=== PATIENT | female | born 1970 ===

== ENCOUNTER 2016-11-22 08:27 | Day surgery (SDC) | payer OTHER ==
[2016-11-22] MEDS ORDERED: Propofol 10 mg/ml Inj (20 ML) ONE ×2 (12:10→12:11)
[2016-11-22 12:57] VITALS: TEMP 98.2
[2016-11-22 13:48] VITALS: O2SAT 100
[2016-11-22 13:50] VITALS: BP 116/69; PULSE 89; RESP 15
== END 2016-11-22 14:35 | disposition home or self-care (01) ==
LOC: C.ENDO 08:27
PROVIDERS: ATTEND Internal Medicine Gastroenterology
DX: R19.2 Visible peristalsis (principal); R10.9 Unspecified abdominal pain; R79.89 Other specified abnormal findings of blood chemistry; K64.8 Other hemorrhoids; K29.70 Gastritis, unspecified, without bleeding
CPT/HCPCS: 43239; 45378; 84703; 88305; 88313; 88342; J2704

== ENCOUNTER 2017-10-10 09:59 | Emergency (ER) | payer OTHER ==
[2017-10-10 10:13] VITALS: BMI 31.4
[2017-10-10 10:18] VITALS: TEMP 98.5
--- NOTE | 2017-10-10 10:45 | C.PDOC ---
History Of Present Illness 47 year old female presents to the ED c/o new onset right inner groin pain for the past 4 days. Patient states her pain is localized, worsens with weight bearing. Patient has prior history of similar symptoms. Patient denies injury, fall, trauma, weakness, numbness, back pain, dysuria, hematuria. Time Seen by Provider: 10/10/17 10:40 Chief Complaint (Nursing): Lower Extremity Problem/Injury History Per: Patient History/Exam Limitations: no limitations Onset/Duration Of Symptoms: Days (4) Current Symptoms Are (Timing): Still Present Recent travel outside of the [place]: No Additional History Per: Patient - Hip Description Of Injury: Other Currently Unable To: Bear Weight Past Medical History Reviewed: Historical Data, Nursing Documentation, Vital Signs Vital Signs: Last Vital Signs Temp 98.5 F 10/10/17 10:13 Pulse 84 10/10/17 10:13 Resp 18 10/10/17 10:13 BP 110/75 10/10/17 10:13 Pulse Ox 96 10/10/17 11:40 - Medical History PMH: No Chronic Diseases Denies: Chronic Kidney Disease Surgical History: Endoscopy Family History: States: Unknown Family Hx - Social History Hx Alcohol Use: No Hx Substance Use: No - Immunization History Hx Tetanus Toxoid Vaccination: No Hx Influenza Vaccination: No Hx Pneumococcal Vaccination: No Review Of Systems Constitutional: Negative for: Fever, Chills Cardiovascular: Negative for: Chest Pain Respiratory: Negative for: Cough, Shortness of Breath Gastrointestinal: Negative for: Nausea, Vomiting, Abdominal Pain Musculoskeletal: Positive for: Leg Pain Skin: Negative for: Rash Neurological: Negative for: Weakness, Numbness Physical Exam - Physical Exam Appears: Non-toxic, No Acute Distress Skin: Normal Color, Warm, Dry Head: Atraumatic, Normacephalic Eye(s): bilateral: Normal Inspection Neck: Normal ROM, Supple Chest: Symmetrical Cardiovascular: Rhythm Regular Respiratory: Normal Breath Sounds, No Rales, No Rhonchi, No Wheezing Extremity: Normal ROM, No Tenderness (no focal tenderness), Capillary Refill (< 2 seconds), No Swelling, Other (reproducible pain on passive ROM motion on full external rptation and on full extension of right leg) Pulses: Left Dorsalis Pedis: Normal, Right Dorsalis Pedis: Normal Neurological/Psych: Oriented x3, Normal Speech, Normal Motor, Normal Sensation Gait: Other (Limited full weight bearin on right leg due to pain) ED Course And Treatment O2 Sat by Pulse Oximetry: 96 (ON RA) Pulse Ox Interpretation: Normal - Other Rad PELVIS X-Ray: Interpreted by Me (NEG) - CT Scan/US DOPPLER Other Rad Studies (CT/US): Radiology Report Reviewed (NEG) Medical Decision Making Medical Decision Making: Plan: * Flexeril 10 mg PO * Toradol 60 mg IM * Pelvis X-Ray * Venous Duplex Scan Disposition Counseled Patient/Family Regarding: Studies Performed, Diagnosis, Need For Followup, Rx Given - Disposition Referrals: YOUR,PMD [Other] Disposition: HOME/ ROUTINE Disposition Time: 12:42 Condition: IMPROVED Additional Instructions: YOUR LEG DOPPLER ULTRASOUND IS NEGATIVE. FOLLOW UP PMD APPLY PATCH TO AFFECTED AREA. MAX 3 PATCHES AT A TIME. REMOVE PATCH 12 HOURS AFTER INITIAL APPLICATION. ALTERNATE 12 HOURS ON, 12 HOURS OFF. Prescriptions: Cyclobenzaprine [Flexeril] 10 mg PO TID #15 tab Ibuprofen [Motrin] 600 mg PO Q6 #30 tab Lidocaine 5% [Lidoderm] 2 patch TOP ONCE PRN #20 patch MDD 3 PATCHES PRN Reason: Pain, Moderate (4-7) Instructions: Groin Strain (DC) Forms: [employer] (Montenegrin) - Clinical Impression Clinical Impression: Groin pain - Scribe Statement The provider has reviewed the documentation as recorded by the Scribe Perfecto Mohan All medical record entries made by the Scribe were at my direction and personally dictated by me. I have reviewed the chart and agree that the record accurately reflects my personal performance of the history, physical exam, medical decision making, and the department course for this patient. I have also personally directed, reviewed, and agree with the discharge instructions and disposition.
--- NOTE | 2017-10-10 12:05 | RAD ---
Date of service: 10/10/2017 PROCEDURE: Radiographs of the pelvis. HISTORY: PAIN COMPARISON: None. FINDINGS: BONES: Pelvic Bones: Questionable nondisplaced transverse fracture through right pubic symphysis. Additional radiographic evaluation advised. No other fracture identified. Hips: Grossly unremarkable. JOINTS: Sacroiliac Joints: Unremarkable. Pubic Symphysis: As above OTHER FINDINGS: None. IMPRESSION: Questionable transverse nondisplaced fracture through the right pubic symphysis. This was discussed with Dr. tenorio by telephone at 12 p.m. on 10/10/2017. There is no history of trauma or focal pain/ tenderness in this region and this is likely artifactual. Unremarkable radiographs of the pelvis.
[2017-10-10] MEDS ORDERED: Lidocaine 5% Patch TD STA (12:45)
[2017-10-10] MEDS ORDERED: Lidocaine 5% Patch TD ONE ×2 (12:49→12:55)
[2017-10-10 12:54] VITALS: BP 121/75; PULSE 81; RESP 16; O2SAT 98
--- NOTE | 2017-10-11 09:00 | VASCLAB ---
Date of service: 10/10/2017 PROCEDURE: Right Lower Extremity Venous Duplex Exam. HISTORY: Pain in limb PRIORS: None. TECHNIQUE: Right common femoral, femoral, popliteal and posterior tibial, peroneal and great saphenous veins were evaluated. Flow was assessed with color Doppler, compressibility, assessment of phasic flow and augmentation response. Report prepared by MARÍA Peña, RVT FINDINGS: RIGHT: 1. Common Femoral Vein: 1.1. Compressibility - Fully compressible: Thrombus - None: Flow - Phasic: Augmentation -Normal: Reflux - None. 2. Femoral Vein: 2.1. Compressibility - Fully compressible: Thrombus - None: Flow - Phasic: Augmentation -Normal: Reflux - None. 3. Popliteal Vein: 3.1. Compressibility - Fully compressible: Thrombus - None: Flow - Phasic: Augmentation -Normal: Reflux - Severe 4.20s 4. Posterior Tibial Vein: 4.1. Compressibility - Fully compressible: Thrombus - None: Flow - Phasic: Augmentation -Normal: Reflux - None. 5. Peroneal Vein: 5.1. Compressibility - Fully compressible: Thrombus - None: Flow - Phasic: Augmentation -Normal: Reflux - None. 6. Great Saphenous Vein: 6.1. Compressibility - Fully compressible: Thrombus -None: Flow - Phasic: Augmentation - Normal: Reflux - None. OTHER FINDINGS: IMPRESSION: No evidence of deep or superficial vein thrombosis of the right lower extremity with excellent venous flow. Valvular incompetence is noted of the right popliteal vein. Normal venous flow noted in the left common femoral vein.
== END 2017-10-10 12:53 | disposition home or self-care (01) ==
LOC: C.ER 09:59
DX: R10.30 Lower abdominal pain, unspecified (principal)
CPT/HCPCS: 72170; 93971; 96372; 99283; J1885

== ENCOUNTER 2018-06-06 06:51 | Day surgery (SDC) | payer OTHER ==
[2018-06-05 12:45] VITALS: BMI 30.9
--- NOTE | 2018-06-06 08:58 | CP.SDSHP ---
Same Day Surgery H & P - History Proposed Procedure: EGD Pre-Op Diagnosis: SEE NOTES - Previous Medical/Surgical History Neuro: Other Misc: Other Pain: 4.Moderate Pain - Allergies Allergies: Allergies No Known Allergies Allergy (Verified 06/06/18 07:19) - Physical Exam General Appearance: N Vital Signs: Vital Signs 06/06/18 07:00 Temperature 97.7 F Pulse Rate 74 Respiratory 19 Rate Blood Pressure 124/70 O2 Sat by Pulse 98 Oximetry Mental Status: Alert & Oriented x3 Neuro: WNL Heart: WNL Lungs: WNL GI: Other - {Optional Preform as Required} Breast: WNL Abdomen: Other Rectal: Other Integument: WNL : Other Ortho: WNL ENT: WNL - Impression Pt. Evaluated Today:Candidate for Anesthesia & Procedure: Yes - Date & Time Time: 08:58 Short Stay Discharge - Short Stay Discharge Admitting Diagnosis/Reason for Visit: DYSPEPSIA Disposition: HOME/ ROUTINE
[2018-06-06] MEDS ORDERED: Lactated Ringer's 500 ML IV ONE (09:01)
[2018-06-06] MEDS ORDERED: Propofol 10 mg/ml Inj (20 ML) ONE (09:03)
[2018-06-06] MEDS ORDERED: Lidocaine Hydrochloride 5 ML INJ ONE (09:19)
[2018-06-06] MEDS ORDERED: Belladonna-Phenobarbital PO ONE (09:35)
[2018-06-06 10:18] VITALS: O2SAT 100
[2018-06-06 10:47] VITALS: BP 107/69; PULSE 69; RESP 20; TEMP 97.1
== END 2018-06-06 10:30 | disposition home or self-care (01) ==
LOC: C.ENDO 06:51
PROVIDERS: ATTEND Specialist
DX: K21.0 Gastro-esophageal reflux disease with esophagitis (principal); K44.9 Diaphragmatic hernia without obstruction or gangrene; K30 Functional dyspepsia
CPT/HCPCS: 43239; 84703; 88305; 88342; J2704; J7120

== ENCOUNTER 2018-06-15 06:39 | Day surgery (SDC) | payer OTHER ==
[2018-06-05 12:45] VITALS: BMI 30.9
[2018-06-15] MEDS ORDERED: Propofol 10 mg/ml Inj (20 ML) ONE (08:11)
--- NOTE | 2018-06-15 08:11 | CP.SDSHP ---
Same Day Surgery H & P - History Proposed Procedure: COLONSCOPY Pre-Op Diagnosis: SEE NOTES - Previous Medical/Surgical History Misc: Other Pain: 4.Moderate Pain - Allergies Allergies: Allergies No Known Allergies Allergy (Verified 06/15/18 07:04) - Physical Exam General Appearance: N Vital Signs: Vital Signs 06/15/18 07:10 Temperature 98 F Pulse Rate 86 Respiratory 20 Rate Blood Pressure 107/69 O2 Sat by Pulse 98 Oximetry Mental Status: Alert & Oriented x3 Neuro: WNL Heart: WNL Lungs: WNL GI: Other - {Optional Preform as Required} Breast: WNL Abdomen: Other Rectal: Other Integument: WNL : WNL Ortho: WNL ENT: WNL - Impression Pt. Evaluated Today:Candidate for Anesthesia & Procedure: Yes - Date & Time Time: 08:11 Short Stay Discharge - Short Stay Discharge Admitting Diagnosis/Reason for Visit: HEMORRHAGE OF ANUS AND RECTUM Disposition: HOME/ ROUTINE
[2018-06-15] MEDS ORDERED: Lactated Ringer's 500 ML IV ONE ×2 (08:13)
[2018-06-15] MEDS ORDERED: Belladonna-Phenobarbital PO ONE (08:50)
[2018-06-15 09:03] VITALS: TEMP 98; O2SAT 100
[2018-06-15 10:44] VITALS: BP 109/70; PULSE 75; RESP 18
== END 2018-06-15 10:05 | disposition home or self-care (01) ==
LOC: C.ENDO 06:39
PROVIDERS: ATTEND Specialist
DX: K62.5 Hemorrhage of anus and rectum (principal); K58.9 Irritable bowel syndrome, unspecified; K60.2 Anal fissure, unspecified; K64.8 Other hemorrhoids; K64.4 Residual hemorrhoidal skin tags
CPT/HCPCS: 45380; 84703; 88305; J2704; J7120